=== PATIENT | female | born 1990 | race Caucasian/White ===

== ENCOUNTER 2018-06-05 09:09 | Emergency (ER) | payer OTHER, SELFPAY ==
[2018-06-05 09:17] VITALS: BP 107/69; PULSE 95; RESP 18; TEMP 36.7; O2SAT 100
--- NOTE | 2018-06-05 11:08 | ED.URI ---
HPI - URI/Sore Throat General Chief Complaint: Upper Respiratory Symptoms Stated Complaint: COUGH 'SINUS' Time Seen by Provider: 06/05/18 10:52 Source: patient Mode of arrival: ambulatory Limitations: no limitations History of Present Illness HPI Narrative: Otherwise healthy 28-year-old female here for evaluation of sinus congestion and a cough. She is currently on some sort of a decongestant which she does not know the name of that she buys [id number]. She does not think that this is helping all that much. This been going on for several weeks. Related Data Allergies Allergy/AdvReac Type Severity Reaction Status Date / Time No Known Drug Allergies Allergy Verified 06/05/18 09:21 Review of Systems Constitutional Denies fever(s) ENT Ears, Nose, Mouth, and Throat: Reports sinus pressure and Denies throat swelling Cardiovascular Denies chest pain and Reports dyspnea Respiratory Reports dyspnea Gastrointestinal Gastrointestinal: Denies abdominal pain, Denies nausea and Denies vomiting Integumentary/Breasts Denies rash Allergic/Immunologic Denies urticaria and Denies throat swelling PFSH Medical History Healthy adult (Acute) Surgical History No pertinent past surgical history (Acute) Social History Smoking Status: Current every day smoker Social History Smoking Status: Current every day smoker Exam Initial Vital Signs Initial Vital Signs: Vital Signs Temperature 98.0 F 06/05/18 09:17 Pulse Rate 95 H 06/05/18 09:17 Respiratory Rate 18 06/05/18 09:17 Blood Pressure 107/69 06/05/18 09:17 Pulse Oximetry 100 06/05/18 09:17 Const General: cooperative, healthy appearing, comfortable, well developed, well groomed and No acute distress Orientation: alert, awake and oriented x3 HENMT Head: normal to inspection and normocephalic Ears: TM's normal bilaterally Nose: external nose normal Face and sinus: normal facial exam Mouth: oral mucosae normal Eyes Pupils: PERRL Resp Effort & Inspection: normal respiratory effort Auscultation: clear to auscultation bilaterally Cardio Rate: regular rate Rhythm: regular rhythm GI Inspection: non-distended Palpation: soft Skin Lesions: no lesions Rashes: no rashes Neuro General: alert and oriented x3 Cognition: normal cognition Speech: speech normal Extrem General: normal to inspection and capillary refill normal Psych Appearance: grossly normal and well kempt Course Vital Signs - 8 hr 06/05/18 09:17 06/05/18 11:25 Temperature 98.0 F 98.0 F Pulse Rate 95 H 89 Respiratory Rate 18 18 Blood Pressure 107/69 Blood Pressure [Right Arm] 96/64 Pulse Oximetry 100 98 MDM - URI/Sore Throat MDM Narrative Medical decision making narrative: Nontoxic appearing. Suspect viral versus allergies. We did discuss this with the mother. No indication for antibiotics. We did discuss decongestants and nasal steroids. We did discuss return precautions. She expressed understanding and agreement plan. Discharge Plan Departure Patient Disposition: Home Clinical Impression: Sinus congestion Discharge Date/Time: 06/05/18 11:28 Interventions: ED Discharge Assessment Last Done: 06/05/18 11:28 Instructions: DI for Nasal Congestion Activity Restrictions/Additional Instructions: I recommend that you continue with the the Claritin or Beti or Zyrtec. You can use the generic version of these medication. I also recommend you add a nasal spray such as Flonase or Nasonex. Contact your primary care doctor for follow-up.
[2018-06-05 11:25] VITALS: BP 96/64; PULSE 89; RESP 18; TEMP 36.7; O2SAT 98
== END 2018-06-05 11:28 | disposition home or self-care (01) ==
PROVIDERS: Emergency Provider Emergency Medicine
DX: R09.81 Nasal congestion (principal)
CPT/HCPCS: 99282